=== PATIENT | male | born 1955 | race Two or more races ===

== ENCOUNTER → 2018-06-29 | Outpatient (CLI) | payer OTHER | END | disposition home or self-care (01) | LOC: CFH 15:18 | PROVIDERS: ATTEND Internal Medicine Nephrology | DX: N18.4 Chronic kidney disease, stage 4 (severe) (principal) | CPT/HCPCS: 76770 ==

== ENCOUNTER → 2018-07-06 | Outpatient (CLI) | payer OTHER ==
[2018-07-06 08:48] LABS: BASOPHILS # (AUTO) 0.03 x10^3/uL (0-0.1); BASOPHILS % (AUTO) 0 % (0-1); EOSINOPHILS # (AUTO) 0.05 x10^3/uL (0-0.4); EOSINOPHILS % (AUTO) 0 % (1-7); LYMPHOCYTES # (AUTO) 1.38 x10^3/uL (1-3.4); LYMPHOCYTES % (AUTO) 13 % (22-44); MD NO; MEAN CORPUSCULAR HEMOGLOBIN 30.5 pg (27.5-34.5); MEAN CORPUSCULAR HGB CONC 32.9 g/dL (33.2-36.2); MEAN CORPUSCULAR VOLUME 92.9 fL (81-97); MEAN PLATELET VOLUME 6.1 fL (7.4-10.4); MONOCYTES # (AUTO) 0.88 x10^3/uL (0.2-0.8); MONOCYTES % (AUTO) 8 % (2-9); NEUTROPHILS # (AUTO) 8.53 x10^3/uL (1.8-6.8); NEUTROPHILS % (AUTO) 79 % (42-75); PLATELET COUNT 369 x10^3/uL (130-400); RED BLOOD COUNT 4.35 x10^6/uL (4.38-5.82); RED CELL DISTRIBUTION WIDTH 13.4 % (9.4-14.8)
[2018-07-07 19:18] LABS: ANA SCREEN NEGATIVE (Negative)
== END | disposition home or self-care (01) ==
LOC: LAB 08:36
PROVIDERS: ATTEND Physician Assistant Medical
DX: M25.532 Pain in left wrist (principal)
CPT/HCPCS: 36415; 84550; 85025; 86038

== ENCOUNTER → 2018-07-07 | Outpatient (CLI) | payer OTHER ==
[2018-07-07 08:24] LABS: BASOPHILS # (AUTO) 0.01 x10^3/uL (0-0.1); BASOPHILS % (AUTO) 0 % (0-1); EOSINOPHILS # (AUTO) 0.01 x10^3/uL (0-0.4); EOSINOPHILS % (AUTO) 0 % (1-7); LYMPHOCYTES # (AUTO) 1.41 x10^3/uL (1-3.4); LYMPHOCYTES % (AUTO) 13 % (22-44); MD NO; MEAN CORPUSCULAR HEMOGLOBIN 30.4 pg (27.5-34.5); MEAN CORPUSCULAR HGB CONC 32.5 g/dL (33.2-36.2); MEAN CORPUSCULAR VOLUME 93.7 fL (81-97); MEAN PLATELET VOLUME 6.2 fL (7.4-10.4); MONOCYTES # (AUTO) 0.79 x10^3/uL (0.2-0.8); MONOCYTES % (AUTO) 7 % (2-9); NEUTROPHILS # (AUTO) 8.45 x10^3/uL (1.8-6.8); NEUTROPHILS % (AUTO) 79 % (42-75); PLATELET COUNT 378 x10^3/uL (130-400); RED BLOOD COUNT 4.18 x10^6/uL (4.38-5.82); RED CELL DISTRIBUTION WIDTH 13.1 % (9.4-14.8)
[2018-07-07 08:30] LABS: MICROSCOPIC INDICATED
[2018-07-07 08:33] LABS: ALANINE AMINOTRANSFERASE 49 U/L (12-78); ALBUMIN 3.6 g/dL (3.4-5.0); ANION GAP 6 mmol/L (5-15); CALCIUM 9.8 mg/dL (8.5-10.1); CHLORIDE 112 mmol/L (98-107)
[2018-07-07 08:35] LABS: ALKALINE PHOSPHATASE 80 U/L (45-117); BILIRUBIN,TOTAL 0.5 mg/dL (0.2-1.0); TOTAL PROTEIN 7.8 g/dL (6.4-8.2)
== END | disposition home or self-care (01) ==
LOC: LAB 08:10
PROVIDERS: ATTEND Internal Medicine Nephrology
DX: E55.9 Vitamin D deficiency, unspecified (principal); N18.4 Chronic kidney disease, stage 4 (severe)
CPT/HCPCS: 36415; 80053; 81001; 82306; 82570; 84156; 85025

== ENCOUNTER 2019-01-17 08:24 | Outpatient (CLI) | payer OTHER ==
[2019-01-17 09:00] LABS: BASOPHILS # (AUTO) 0.03 x10^3/uL (0-0.1); BASOPHILS % (AUTO) 1 % (0-1); EOSINOPHILS # (AUTO) 0.18 x10^3/uL (0-0.4); EOSINOPHILS % (AUTO) 3 % (1-7); LYMPHOCYTES # (AUTO) 1.52 x10^3/uL (1-3.4); LYMPHOCYTES % (AUTO) 26 % (22-44); MD NO; MEAN CORPUSCULAR HGB CONC 33.7 g/dL (33.2-36.2); MEAN PLATELET VOLUME 6.4 fL (7.4-10.4); MONOCYTES % (AUTO) 9 % (2-9); NEUTROPHILS # (AUTO) 3.55 x10^3/uL (1.8-6.8); NEUTROPHILS % (AUTO) 62 % (42-75); PLATELET COUNT 332 x10^3/uL (130-400); RED BLOOD COUNT 4.35 x10^6/uL (4.38-5.82); RED CELL DISTRIBUTION WIDTH 12.9 % (9.4-14.8)
[2019-01-17 09:04] LABS: MICROSCOPIC AUTO
[2019-01-17 09:08] LABS: ALANINE AMINOTRANSFERASE 47 U/L (12-78); ALBUMIN 3.9 g/dL (3.4-5.0); ANION GAP 8 mmol/L (5-15); CALCIUM 9.3 mg/dL (8.5-10.1); CHLORIDE 111 mmol/L (98-107); CREATININE 2.13 mg/dL (0.7-1.3)
[2019-01-17 09:10] LABS: ALKALINE PHOSPHATASE 93 U/L (45-117); BILIRUBIN,TOTAL 0.6 mg/dL (0.2-1.0); TOTAL PROTEIN 7.1 g/dL (6.4-8.2)
== END 2019-01-17 23:59 | disposition home or self-care (01) ==
LOC: LAB 08:24
PROVIDERS: ATTEND Internal Medicine Nephrology
DX: E11.22 Type 2 diabetes mellitus with diabetic chronic kidney disease (principal); I12.9 Hypertensive chronic kidney disease with stage 1 through stage 4 chronic kidney disease, or unspecified chronic kidney disease; N18.4 Chronic kidney disease, stage 4 (severe); M10.9 Gout, unspecified
CPT/HCPCS: 36415; 80053; 81001; 82570; 84156; 84550; 85025

== ENCOUNTER → 2019-01-24 | Outpatient (CLI) | payer OTHER | END | disposition home or self-care (01) | LOC: LAB 07:58 | PROVIDERS: ATTEND Family Medicine | DX: E11.9 Type 2 diabetes mellitus without complications (principal) | CPT/HCPCS: 36415; 83036 ==

== ENCOUNTER → 2019-08-03 | Outpatient (CLI) | payer OTHER ==
[2019-08-03 08:49] LABS: BASOPHILS # (AUTO) 0.03 x10^3/uL (0-0.1); BASOPHILS % (AUTO) 1 % (0-1); EOSINOPHILS # (AUTO) 0.23 x10^3/uL (0-0.4); EOSINOPHILS % (AUTO) 5 % (1-7); LYMPHOCYTES # (AUTO) 1.19 x10^3/uL (1-3.4); LYMPHOCYTES % (AUTO) 24 % (22-44); MD NO; MEAN CORPUSCULAR HEMOGLOBIN 30.5 pg (27.5-34.5); MEAN CORPUSCULAR HGB CONC 33.8 g/dL (33.2-36.2); MEAN CORPUSCULAR VOLUME 90.2 fL (81-97); MEAN PLATELET VOLUME 6.7 fL (7.4-10.4); MONOCYTES # (AUTO) 0.29 x10^3/uL (0.2-0.8); MONOCYTES % (AUTO) 6 % (2-9); NEUTROPHILS # (AUTO) 3.24 x10^3/uL (1.8-6.8); NEUTROPHILS % (AUTO) 65 % (42-75); PLATELET COUNT 309 x10^3/uL (130-400); RED BLOOD COUNT 4.53 x10^6/uL (4.38-5.82); RED CELL DISTRIBUTION WIDTH 12.8 % (9.4-14.8)
[2019-08-03 08:57] LABS: MICROSCOPIC AUTO
[2019-08-03 08:59] LABS: ALANINE AMINOTRANSFERASE 29 U/L (12-78); ALBUMIN 3.5 g/dL (3.4-5.0); ANION GAP 8 mmol/L (5-15); CALCIUM 8.6 mg/dL (8.5-10.1); CHLORIDE 111 mmol/L (98-107); CREATININE 1.94 mg/dL (0.7-1.3)
[2019-08-03 09:01] LABS: ALKALINE PHOSPHATASE 96 U/L (45-117); BILIRUBIN,TOTAL 0.7 mg/dL (0.2-1.0); TOTAL PROTEIN 6.9 g/dL (6.4-8.2)
== END | disposition home or self-care (01) ==
LOC: LAB 08:15
PROVIDERS: ATTEND Internal Medicine Nephrology
DX: I12.9 Hypertensive chronic kidney disease with stage 1 through stage 4 chronic kidney disease, or unspecified chronic kidney disease (principal); N18.3 Chronic kidney disease, stage 3 (moderate); E11.22 Type 2 diabetes mellitus with diabetic chronic kidney disease; M10.9 Gout, unspecified; R80.9 Proteinuria, unspecified
CPT/HCPCS: 36415; 80053; 81001; 82043; 82570; 84156; 84550; 85025

== ENCOUNTER → 2019-11-01 | Outpatient (CLI) | payer OTHER ==
[2019-11-01 07:57] LABS: BASOPHILS # (AUTO) 0.04 x10^3/uL (0-0.1); BASOPHILS % (AUTO) 1 % (0-1); EOSINOPHILS # (AUTO) 0.27 x10^3/uL (0-0.4); EOSINOPHILS % (AUTO) 4 % (1-7); LYMPHOCYTES % (AUTO) 26 % (22-44); MD NO; MEAN CORPUSCULAR HEMOGLOBIN 30.2 pg (27.5-34.5); MEAN CORPUSCULAR HGB CONC 33.4 g/dL (33.2-36.2); MEAN CORPUSCULAR VOLUME 90.4 fL (81-97); MEAN PLATELET VOLUME 6.5 fL (7.4-10.4); MONOCYTES # (AUTO) 0.46 x10^3/uL (0.2-0.8); MONOCYTES % (AUTO) 7 % (2-9); NEUTROPHILS # (AUTO) 4.24 x10^3/uL (1.8-6.8); NEUTROPHILS % (AUTO) 62 % (42-75); PLATELET COUNT 395 x10^3/uL (130-400); RED BLOOD COUNT 4.67 x10^6/uL (4.38-5.82); RED CELL DISTRIBUTION WIDTH 12.8 % (9.4-14.8)
[2019-11-01 07:58] LABS: MICROSCOPIC AUTO
[2019-11-01 08:07] LABS: ALANINE AMINOTRANSFERASE 34 U/L (12-78); ALBUMIN 3.9 g/dL (3.4-5.0); ANION GAP 9 mmol/L (5-15); CALCIUM 9.3 mg/dL (8.5-10.1); CHLORIDE 110 mmol/L (98-107); CREATININE 2.01 mg/dL (0.7-1.3)
[2019-11-01 08:18] LABS: ALKALINE PHOSPHATASE 115 U/L (45-117); BILIRUBIN,TOTAL 0.7 mg/dL (0.2-1.0); CHOL/HDL RATIO 2.9; CHOLESTEROL, TOTAL 157 mg/dL (140-239); HDL CHOL % 34 % (26-37); HDL CHOLESTEROL (DIRECT) 54 mg/dL (40-60); LDL CHOLESTEROL,CALCULATED 61 mg/dL (54-169); LDL/HDL RATIO 1.1 (0.5-3.0); PSA SCREEN 1.83 ng/mL (0.00-4.00); TOTAL PROTEIN 7.6 g/dL (6.4-8.2); TRIGLYCERIDES 211 mg/dL (50-200); VLDL CHOLESTEROL 42 mg/dL (0-25)
== END | disposition home or self-care (01) ==
LOC: LAB 07:38
PROVIDERS: ATTEND Family Medicine
DX: Z12.5 Encounter for screening for malignant neoplasm of prostate (principal); Z00.00 Encounter for general adult medical examination without abnormal findings; R79.9 Abnormal finding of blood chemistry, unspecified; E11.9 Type 2 diabetes mellitus without complications; E78.5 Hyperlipidemia, unspecified; E03.9 Hypothyroidism, unspecified; N39.0 Urinary tract infection, site not specified
CPT/HCPCS: 36415; 80053; 80061; 83036; 84402; 84403; 84443; 85025; G0103

== ENCOUNTER 2019-12-15 14:21 | Inpatient (IN) | payer OTHER ==
[~2019-12-15] VITALS: Ht 162.6 cm; Wt 77.4 kg
--- NOTE | 2019-12-15 14:37 | NUR ---
PT RA 72%, PT REQUIRING 6L NC TO MAINTAIN SATS 88-90%, PT TO RM FOR POSSIBLE OXYMASK, TECH TO DO EKG IN RM
[2019-12-15] MEDS ORDERED: ALLO100T30 PO (15:04)
[2019-12-15] MEDS ORDERED: LOSA100T14 PO (15:04)
[2019-12-15] MEDS ORDERED: AMLO-150 PO (15:04)
[2019-12-15] MEDS ORDERED: TERA2CAP3 PO (15:04)
[2019-12-15] MEDS ORDERED: LEVO75TA5 PO (15:04)
[2019-12-15] MEDS ORDERED: GLIP5TAB10 PO (15:04)
[2019-12-15] MEDS ORDERED: LOVA10TA PO (15:04)
[2019-12-15] MEDS ORDERED: DEXAMETHASONE 4 MG/ML, 1ML IVPush ONE (15:30)
[2019-12-15] MEDS ORDERED: DEXAMETHASONE 4 MG/ML, 1ML ONE ×3 (15:40→15:50)
[2019-12-15] MEDS ORDERED: ALBUTEROL/IPRATROPIUM 2.5MG/0.5MG, 3 ML ONE ×2 (15:40→17:19)
[2019-12-15] MEDS ORDERED: CEFTRIAXONE PMX 1GM/50ML 50 ML ONE (15:40)
[2019-12-15 15:50] LABS: BASOPHILS % (AUTO) 0 % (0-1); EOSINOPHILS % (AUTO) 0 % (1-7); INTERNATIONAL NORMALIZED RATIO 0.9 (0.93-1.1); LYMPHOCYTES % (AUTO) 10 % (22-44); MEAN CORPUSCULAR HEMOGLOBIN 29.6 pg (27.5-34.5); MEAN CORPUSCULAR HGB CONC 33.6 g/dL (33.2-36.2); MEAN PLATELET VOLUME 7.1 fL (7.4-10.4); MONOCYTES % (AUTO) 7 % (2-9); NEUTROPHILS % (AUTO) 83 % (42-75); PLATELET COUNT 177 x10^3/uL (130-400); PROTHROMBIN TIME 9.5 Seconds (9.6-11.5); RED BLOOD COUNT 4.43 x10^6/uL (4.38-5.82)
[2019-12-15 15:52] LABS: ALBUMIN 3.3 g/dL (3.4-5.0); ANION GAP 8 mmol/L (5-15); CALCIUM 8.6 mg/dL (8.5-10.1); CHLORIDE 105 mmol/L (98-107)
[2019-12-15] MEDS: ALBUTEROL/IPRATROPIUM 2.5MG/0.5MG, 3 ML NPPB SCH ×2 (15:52→17:24)
[2019-12-15 15:56] LABS: CREATININE 2.64 mg/dL (0.7-1.3); TROPONIN I < 0.015 ng/mL (0.000-0.045)
[2019-12-15 15:58] LABS: MD NO
--- NOTE | 2019-12-15 15:59 | NUR ---
Pt given steroid, ATB, and breathing tx. MD at bedside. Pt on 12L oximask prior to treatment. MD aware.
[2019-12-15] MEDS ORDERED: CEFTRIAXONE PMX 1GM/50ML 50 ML IVPB ONE (16:00)
[2019-12-15] MEDS ORDERED: SODIUM CHLORIDE FLUSH 10ML SYR IVF ONE (16:00)
[2019-12-15] MEDS ORDERED: REMDESIVIR 100 MG in SODIUM CHLORIDE 0.9% 250 ML IVPB ONE (16:30)
[2019-12-15] MEDS ORDERED: ONDANSETRON 2MG/ML, 2ML IVPush PRN (16:30)
[2019-12-15] MEDS: ENOXAPARIN 60 MG/0.6 ML SQ SCH (16:30)
[2019-12-15] MEDS ORDERED: BISACODYL 10 MG SUPP PR PRN (16:30)
[2019-12-15] MEDS: INSULIN LISPRO 100 UNITS/ML, PEN SQ-INSULIN SCH ×2 (16:30→22:03)
[2019-12-15] MEDS ORDERED: OXYcodone IR 5MG TABLET PO PRN (16:30)
[2019-12-15] MEDS ORDERED: POLYETHYLENE GLYCOL 17 GM PACKET PO PRN (16:30)
[2019-12-15] MEDS: AZITHROMYCIN 500 MG in SODIUM CHLORIDE 0.9% 250 ML IV SCH (16:41)
[2019-12-15] MEDS ORDERED: AZITHROMYCIN 500 MG in SODIUM CHLORIDE 0.9% 250 ML IVPB ONE (17:00)
[2019-12-15 17:29] LABS: C-REACTIVE PROTEIN, QUANT 9.87 mg/dL (0.02-0.49)
--- NOTE | 2019-12-15 18:52 | NUR ---
Kennedi [phone]
--- NOTE | 2019-12-15 19:03 | NUR ---
Please call Kennedi () with updates. Number in previous note.
--- NOTE | 2019-12-15 19:24 | NUR ---
Report received from HUEY Kamara. This RN to assume care. Awaiting bed placement. Patient states he is still having diff breathing. Patient is speaking in full word sentences and not using accessory muscles to breathe, however SPO2 remains in the low 90s.
--- NOTE | 2019-12-15 20:00 | NUR ---
Patient states his breathing is feeling better. Remains on 8L NC to maintain sats.
[2019-12-15 21:15] VITALS: BP 142/84
[2019-12-15] MEDS: LOVASTATIN 10 MG TABLET PO SCH (22:00)
[2019-12-15] MEDS: TERAZOSIN 2MG CAPSULE PO SCH (22:00)
[2019-12-15] MEDS: ASCORBIC ACID 500 MG TABLET PO SCH (22:00)
[2019-12-15] MEDS: THIAMINE 100MG TABLET PO SCH (22:01)
[2019-12-15] MEDS: CEFTRIAXONE PMX 1GM/50ML 50 ML IV SCH (22:03)
[2019-12-15 23:14] VITALS: BP 142/84
[2019-12-16 04:00] VITALS: BP 120/69
[2019-12-16 04:28] LABS: BASOPHILS % (AUTO) 0 % (0-1); EOSINOPHILS % (AUTO) 0 % (1-7); LYMPHOCYTES % (AUTO) 11 % (22-44); MEAN CORPUSCULAR HEMOGLOBIN 29.9 pg (27.5-34.5); MEAN CORPUSCULAR HGB CONC 33.8 g/dL (33.2-36.2); MEAN PLATELET VOLUME 6.8 fL (7.4-10.4); MONOCYTES % (AUTO) 7 % (2-9); NEUTROPHILS % (AUTO) 81 % (42-75); PLATELET COUNT 192 x10^3/uL (130-400); RED BLOOD COUNT 4.07 x10^6/uL (4.38-5.82); RED CELL DISTRIBUTION WIDTH 12.9 % (9.4-14.8)
[2019-12-16 04:40] LABS: ALANINE AMINOTRANSFERASE 60 U/L (12-78); ALBUMIN 2.8 g/dL (3.4-5.0); ANION GAP 9 mmol/L (5-15); CALCIUM 8.3 mg/dL (8.5-10.1); CHLORIDE 110 mmol/L (98-107)
[2019-12-16 04:43] LABS: ALKALINE PHOSPHATASE 95 U/L (45-117); BILIRUBIN,TOTAL 0.3 mg/dL (0.2-1.0); CREATININE 2.08 mg/dL (0.7-1.3); TOTAL PROTEIN 7.1 g/dL (6.4-8.2)
[2019-12-16 04:56] LABS: MD NO
[2019-12-16] MEDS: LEVOTHYROXINE 75 MCG TABLET PO SCH (06:16)
[2019-12-16] MEDS: ASCORBIC ACID 500 MG TABLET PO SCH ×2 (08:00→16:35)
[2019-12-16] MEDS: CHOLECALCIFEROL 5,000u TAB PO SCH (09:00)
[2019-12-16] MEDS: SENNA/DOCUSATE TABLET PO SCH (09:00)
[2019-12-16] MEDS: DEXAMETHASONE 4 MG/ML, 1ML IVPush SCH (09:13)
[2019-12-16] MEDS: ZINC SULFATE 220 MG CAPSULE PO SCH (09:13)
[2019-12-16] MEDS: ALLOPURINOL 100 MG TABLET PO SCH (09:13)
[2019-12-16] MEDS: AMLODIPINE 5 MG TABLET PO SCH (09:13)
[2019-12-16] MEDS: LOSARTAN 100 MG TAB PO SCH (09:13)
[2019-12-16] MEDS: INSULIN LISPRO 100 UNITS/ML, PEN SQ-INSULIN SCH ×4 (09:13→21:44)
[2019-12-16] MEDS: THIAMINE 100MG TABLET PO SCH ×2 (09:14→21:43)
[2019-12-16] MEDS: REMDESIVIR 50 MG in SODIUM CHLORIDE 0.9% 250 ML IVPB SCH (16:34)
[2019-12-16] MEDS: ENOXAPARIN 60 MG/0.6 ML SQ SCH (16:35)
[2019-12-16] MEDS: ACETAMINOPHEN 325 MG TABLET PO PRN (16:35)
[2019-12-16] MEDS: AZITHROMYCIN 500 MG in SODIUM CHLORIDE 0.9% 250 ML IV SCH (18:46)
[2019-12-16] MEDS: TERAZOSIN 2MG CAPSULE PO SCH (21:43)
[2019-12-16] MEDS: LOVASTATIN 10 MG TABLET PO SCH (21:43)
[2019-12-16] MEDS: MELATONIN 5 MG TABLET PO PRN (21:43)
[2019-12-16] MEDS: CEFTRIAXONE PMX 1GM/50ML 50 ML IV SCH (21:45)
[2019-12-17 04:00] VITALS: BP 118/82
[2019-12-17 05:21] LABS: BASOPHILS % (AUTO) 0 % (0-1); EOSINOPHILS % (AUTO) 0 % (1-7); LYMPHOCYTES % (AUTO) 11 % (22-44); MEAN CORPUSCULAR HEMOGLOBIN 29.7 pg (27.5-34.5); MEAN CORPUSCULAR HGB CONC 33.9 g/dL (33.2-36.2); MEAN PLATELET VOLUME 7.2 fL (7.4-10.4); MONOCYTES % (AUTO) 11 % (2-9); NEUTROPHILS % (AUTO) 78 % (42-75); PLATELET COUNT 241 x10^3/uL (130-400); RED BLOOD COUNT 4.38 x10^6/uL (4.38-5.82); RED CELL DISTRIBUTION WIDTH 13.1 % (9.4-14.8)
[2019-12-17 05:27] LABS: ALANINE AMINOTRANSFERASE 81 U/L (12-78); ALBUMIN 2.8 g/dL (3.4-5.0); ANION GAP 6 mmol/L (5-15); CALCIUM 8.7 mg/dL (8.5-10.1); CHLORIDE 112 mmol/L (98-107)
[2019-12-17 05:30] LABS: ALKALINE PHOSPHATASE 104 U/L (45-117); BILIRUBIN,TOTAL 0.3 mg/dL (0.2-1.0); CREATININE 1.86 mg/dL (0.7-1.3); MD NO; TOTAL PROTEIN 7.1 g/dL (6.4-8.2)
[2019-12-17] MEDS: LEVOTHYROXINE 75 MCG TABLET PO SCH (06:49)
[2019-12-17] MEDS: THIAMINE 100MG TABLET PO SCH ×2 (08:18→22:01)
[2019-12-17] MEDS: SENNA/DOCUSATE TABLET PO SCH (08:18)
[2019-12-17] MEDS: ZINC SULFATE 220 MG CAPSULE PO SCH (08:18)
[2019-12-17] MEDS: AMLODIPINE 5 MG TABLET PO SCH (08:18)
[2019-12-17] MEDS: LOSARTAN 100 MG TAB PO SCH (08:18)
[2019-12-17] MEDS: ASCORBIC ACID 500 MG TABLET PO SCH ×2 (08:18→16:27)
[2019-12-17] MEDS: INSULIN LISPRO 100 UNITS/ML, PEN SQ-INSULIN SCH ×4 (08:18→22:02)
[2019-12-17] MEDS: ALLOPURINOL 100 MG TABLET PO SCH (08:18)
[2019-12-17] MEDS: CHOLECALCIFEROL 5,000u TAB PO SCH (08:18)
[2019-12-17] MEDS: DEXAMETHASONE 4 MG/ML, 1ML IVPush SCH (08:19)
[2019-12-17] MEDS: ENOXAPARIN 60 MG/0.6 ML SQ SCH (16:27)
[2019-12-17] MEDS: REMDESIVIR 50 MG in SODIUM CHLORIDE 0.9% 250 ML IVPB SCH (16:27)
[2019-12-17] MEDS: AZITHROMYCIN 500 MG in SODIUM CHLORIDE 0.9% 250 ML IV SCH (18:32)
[2019-12-17] MEDS ORDERED: INSULIN GLARGINE 100 UNITS/ML, PEN SQ-INSULIN SCH (21:00)
[2019-12-17] MEDS: CEFTRIAXONE PMX 1GM/50ML 50 ML IV SCH (22:00)
[2019-12-17] MEDS: TERAZOSIN 2MG CAPSULE PO SCH (22:01)
[2019-12-17] MEDS: LOVASTATIN 10 MG TABLET PO SCH (22:01)
[2019-12-18] MEDS: MELATONIN 5 MG TABLET PO PRN (01:17)
[2019-12-18 04:00] VITALS: BP 116/78
[2019-12-18 04:55] LABS: ALBUMIN 2.7 g/dL (3.4-5.0); ANION GAP 8 mmol/L (5-15); CALCIUM 8.6 mg/dL (8.5-10.1); CHLORIDE 111 mmol/L (98-107)
[2019-12-18 04:58] LABS: ALANINE AMINOTRANSFERASE 62 U/L (12-78); ALKALINE PHOSPHATASE 96 U/L (45-117); BILIRUBIN,TOTAL 0.3 mg/dL (0.2-1.0); CREATININE 1.68 mg/dL (0.7-1.3); TOTAL PROTEIN 6.3 g/dL (6.4-8.2)
[2019-12-18] MEDS: LEVOTHYROXINE 75 MCG TABLET PO SCH (06:42)
[2019-12-18] MEDS: DEXAMETHASONE 4 MG/ML, 1ML IVPush SCH (09:21)
[2019-12-18] MEDS: ASCORBIC ACID 500 MG TABLET PO SCH ×2 (09:22→16:07)
[2019-12-18] MEDS: THIAMINE 100MG TABLET PO SCH ×2 (09:22→21:49)
[2019-12-18] MEDS: SENNA/DOCUSATE TABLET PO SCH (09:22)
[2019-12-18] MEDS: ALLOPURINOL 100 MG TABLET PO SCH (09:22)
[2019-12-18] MEDS: AMLODIPINE 5 MG TABLET PO SCH (09:22)
[2019-12-18] MEDS: SODIUM BICARBONATE 650 MG TABLET PO SCH ×2 (09:22→21:48)
[2019-12-18] MEDS: ZINC SULFATE 220 MG CAPSULE PO SCH (09:23)
[2019-12-18] MEDS: CHOLECALCIFEROL 5,000u TAB PO SCH (09:23)
[2019-12-18] MEDS: LOSARTAN 100 MG TAB PO SCH (09:24)
[2019-12-18] MEDS: INSULIN LISPRO 100 UNITS/ML, PEN SQ-INSULIN SCH ×4 (09:25→21:59)
[2019-12-18 14:48] VITALS: BP 132/86
[2019-12-18] MEDS: ENOXAPARIN 60 MG/0.6 ML SQ SCH (16:06)
[2019-12-18] MEDS: REMDESIVIR 50 MG in SODIUM CHLORIDE 0.9% 250 ML IVPB SCH (16:06)
[2019-12-18] MEDS: AZITHROMYCIN 500 MG in SODIUM CHLORIDE 0.9% 250 ML IV SCH (18:24)
[2019-12-18] MEDS: LOVASTATIN 10 MG TABLET PO SCH (21:49)
[2019-12-18] MEDS: TERAZOSIN 2MG CAPSULE PO SCH (21:50)
[2019-12-18] MEDS: CEFTRIAXONE PMX 1GM/50ML 50 ML IV SCH (21:50)
[2019-12-18] MEDS: INSULIN GLARGINE 100 UNITS/ML, PEN SQ-INSULIN SCH (21:58)
[2019-12-19 03:30] VITALS: BP 142/83
[2019-12-19 04:46] LABS: ALANINE AMINOTRANSFERASE 57 U/L (12-78); ALBUMIN 2.8 g/dL (3.4-5.0); ANION GAP 8 mmol/L (5-15); CALCIUM 8.5 mg/dL (8.5-10.1); CHLORIDE 114 mmol/L (98-107)
[2019-12-19 04:49] LABS: ALKALINE PHOSPHATASE 105 U/L (45-117); BILIRUBIN,TOTAL 0.4 mg/dL (0.2-1.0); CREATININE 1.57 mg/dL (0.7-1.3); TOTAL PROTEIN 6.4 g/dL (6.4-8.2)
[2019-12-19] MEDS: INSULIN LISPRO 100 UNITS/ML, PEN SQ-INSULIN SCH ×4 (04:55→21:17)
[2019-12-19] MEDS: LEVOTHYROXINE 75 MCG TABLET PO SCH (06:35)
[2019-12-19 08:38] VITALS: BP 159/63
[2019-12-19] MEDS: SODIUM BICARBONATE 650 MG TABLET PO SCH ×2 (08:42→21:12)
[2019-12-19] MEDS: DEXAMETHASONE 4 MG/ML, 1ML IVPush SCH (08:42)
[2019-12-19] MEDS: ASCORBIC ACID 500 MG TABLET PO SCH ×2 (08:42→16:03)
[2019-12-19] MEDS: SENNA/DOCUSATE TABLET PO SCH (08:42)
[2019-12-19] MEDS: ALLOPURINOL 100 MG TABLET PO SCH (08:42)
[2019-12-19] MEDS: ZINC SULFATE 220 MG CAPSULE PO SCH (08:42)
[2019-12-19] MEDS: THIAMINE 100MG TABLET PO SCH ×2 (08:42→21:13)
[2019-12-19] MEDS: AMLODIPINE 5 MG TABLET PO SCH (08:43)
[2019-12-19] MEDS: LOSARTAN 100 MG TAB PO SCH (08:43)
[2019-12-19] MEDS: CHOLECALCIFEROL 5,000u TAB PO SCH (08:43)
[2019-12-19 13:06] VITALS: BP 135/80
[2019-12-19] MEDS: REMDESIVIR 50 MG in SODIUM CHLORIDE 0.9% 250 ML IVPB SCH (16:02)
[2019-12-19] MEDS: ENOXAPARIN 60 MG/0.6 ML SQ SCH (16:03)
[2019-12-19] MEDS: AZITHROMYCIN 500 MG in SODIUM CHLORIDE 0.9% 250 ML IV SCH (18:03)
[2019-12-19 19:14] VITALS: BP 148/89
[2019-12-19] MEDS: LOVASTATIN 10 MG TABLET PO SCH (21:12)
[2019-12-19] MEDS: TERAZOSIN 2MG CAPSULE PO SCH (21:13)
[2019-12-19] MEDS: CEFTRIAXONE PMX 1GM/50ML 50 ML IV SCH (21:17)
[2019-12-19] MEDS: INSULIN GLARGINE 100 UNITS/ML, PEN SQ-INSULIN SCH (21:17)
[2019-12-20 00:22] VITALS: BP 147/97
[2019-12-20] MEDS: LEVOTHYROXINE 75 MCG TABLET PO SCH (04:52)
[2019-12-20] MEDS: ZINC SULFATE 220 MG CAPSULE PO SCH (08:06)
[2019-12-20] MEDS: THIAMINE 100MG TABLET PO SCH ×2 (08:07→20:48)
[2019-12-20] MEDS: ALLOPURINOL 100 MG TABLET PO SCH (08:07)
[2019-12-20] MEDS: ASCORBIC ACID 500 MG TABLET PO SCH ×2 (08:07→17:32)
[2019-12-20] MEDS: AMLODIPINE 5 MG TABLET PO SCH (08:07)
[2019-12-20] MEDS: LOSARTAN 100 MG TAB PO SCH (08:07)
[2019-12-20] MEDS: SENNA/DOCUSATE TABLET PO SCH (08:08)
[2019-12-20] MEDS: DEXAMETHASONE 4 MG/ML, 1ML IVPush SCH (08:08)
[2019-12-20] MEDS: CHOLECALCIFEROL 5,000u TAB PO SCH (08:08)
[2019-12-20] MEDS: SODIUM BICARBONATE 650 MG TABLET PO SCH ×2 (08:12→20:48)
[2019-12-20] MEDS: INSULIN LISPRO 100 UNITS/ML, PEN SQ-INSULIN SCH ×4 (08:19→20:57)
[2019-12-20 08:29] LABS: BASOPHILS % (AUTO) 0 % (0-1); EOSINOPHILS % (AUTO) 0 % (1-7); LYMPHOCYTES % (AUTO) 3 % (22-44); MEAN CORPUSCULAR HEMOGLOBIN 29.1 pg (27.5-34.5); MEAN CORPUSCULAR HGB CONC 33.6 g/dL (33.2-36.2); MEAN PLATELET VOLUME 6.8 fL (7.4-10.4); MONOCYTES % (AUTO) 4 % (2-9); NEUTROPHILS % (AUTO) 93 % (42-75); PLATELET COUNT 307 x10^3/uL (130-400); RED BLOOD COUNT 4.17 x10^6/uL (4.38-5.82); RED CELL DISTRIBUTION WIDTH 12.6 % (9.4-14.8)
[2019-12-20 08:42] LABS: ANION GAP 9 mmol/L (5-15); CALCIUM 8.7 mg/dL (8.5-10.1); CHLORIDE 114 mmol/L (98-107)
[2019-12-20 08:49] LABS: CREATININE 1.58 mg/dL (0.7-1.3)
[2019-12-20 09:16] LABS: MD SCAN
[2019-12-20 15:00] VITALS: BP 130/84
[2019-12-20 15:18] VITALS: BP 134/89
[2019-12-20 15:53] VITALS: BP 127/83
[2019-12-20] MEDS: REMDESIVIR 100 MG in SODIUM CHLORIDE 0.9% 250 ML IVPB SCH (16:14)
[2019-12-20] MEDS: ENOXAPARIN 60 MG/0.6 ML SQ SCH (17:32)
[2019-12-20] MEDS: AZITHROMYCIN 500 MG in SODIUM CHLORIDE 0.9% 250 ML IV SCH (18:27)
[2019-12-20] MEDS ORDERED: TERAZOSIN 5MG CAPSULE ONE (20:46)
[2019-12-20] MEDS: LOVASTATIN 10 MG TABLET PO SCH (20:48)
[2019-12-20] MEDS: TERAZOSIN 2MG CAPSULE PO SCH (20:48)
[2019-12-20] MEDS: INSULIN GLARGINE 100 UNITS/ML, PEN SQ-INSULIN SCH (20:58)
[2019-12-20] MEDS: CEFTRIAXONE PMX 1GM/50ML 50 ML IV SCH (22:45)
[2019-12-21] MEDS: ACETAMINOPHEN 325 MG TABLET PO PRN (02:47)
[2019-12-21 04:00] VITALS: BP 129/67
[2019-12-21 04:45] LABS: BASOPHILS % (AUTO) 0 % (0-1); EOSINOPHILS % (AUTO) 0 % (1-7); LYMPHOCYTES % (AUTO) 4 % (22-44); MEAN CORPUSCULAR HEMOGLOBIN 29.7 pg (27.5-34.5); MEAN CORPUSCULAR HGB CONC 33.8 g/dL (33.2-36.2); MEAN PLATELET VOLUME 6.7 fL (7.4-10.4); MONOCYTES % (AUTO) 3 % (2-9); NEUTROPHILS % (AUTO) 93 % (42-75); PLATELET COUNT 304 x10^3/uL (130-400); RED CELL DISTRIBUTION WIDTH 13.1 % (9.4-14.8)
[2019-12-21 04:50] LABS: INTERNATIONAL NORMALIZED RATIO 0.99 (0.93-1.1); MD NO; PROTHROMBIN TIME 10.5 Seconds (9.6-11.5)
[2019-12-21 05:00] LABS: ALANINE AMINOTRANSFERASE 44 U/L (12-78); ALBUMIN 2.4 g/dL (3.4-5.0); ANION GAP 8 mmol/L (5-15); CALCIUM 8.7 mg/dL (8.5-10.1); CHLORIDE 113 mmol/L (98-107); CREATININE 1.48 mg/dL (0.7-1.3)
[2019-12-21 05:02] LABS: ALKALINE PHOSPHATASE 107 U/L (45-117); BILIRUBIN,TOTAL 0.6 mg/dL (0.2-1.0); TOTAL PROTEIN 6.2 g/dL (6.4-8.2)
[2019-12-21] MEDS: LEVOTHYROXINE 75 MCG TABLET PO SCH (05:15)
[2019-12-21] MEDS ORDERED: GLUCAGON 1 MG IM PRN (07:00)
[2019-12-21] MEDS ORDERED: DEXTROSE 4 GM TAB.CHEW PO PRN (07:00)
[2019-12-21] MEDS: INSULIN LISPRO 100 UNITS/ML, PEN SQ-INSULIN SCH ×4 (07:00→19:42)
[2019-12-21] MEDS ORDERED: DEXTROSE 50%, 50ML SYRINGE IVPush PRN (07:00)
[2019-12-21] MEDS: DEXAMETHASONE 4 MG/ML, 1ML IVPush SCH (08:35)
[2019-12-21] MEDS ORDERED: MORPHINE SULFATE 4 MG/ML, 1ML ONE (08:50)
[2019-12-21] MEDS ORDERED: LORazepam 2 MG/ML, 1ML ONE (08:51)
[2019-12-21] MEDS: SENNA/DOCUSATE TABLET PO SCH (09:00)
[2019-12-21] MEDS: SODIUM BICARBONATE 650 MG TABLET PO SCH ×2 (09:00→21:29)
[2019-12-21] MEDS: LOSARTAN 100 MG TAB PO SCH (09:00)
[2019-12-21] MEDS ORDERED: LORazepam 2 MG/ML, 1ML IVPush ONE (09:00)
[2019-12-21] MEDS ORDERED: MORPHINE SULFATE 4 MG/ML, 1ML IVPush PRN (09:00)
[2019-12-21] MEDS: ALLOPURINOL 100 MG TABLET PO SCH (09:00)
[2019-12-21] MEDS: AMLODIPINE 5 MG TABLET PO SCH (09:02)
[2019-12-21] MEDS: ASCORBIC ACID 500 MG TABLET PO SCH ×2 (09:02→17:38)
[2019-12-21] MEDS: CHOLECALCIFEROL 5,000u TAB PO SCH (09:02)
[2019-12-21] MEDS: SODIUM CHLORIDE FLUSH 10ML SYR IVF SCH ×2 (09:02→19:30)
[2019-12-21] MEDS: ZINC SULFATE 220 MG CAPSULE PO SCH (09:02)
[2019-12-21] MEDS: THIAMINE 100MG TABLET PO SCH ×2 (09:06→21:29)
[2019-12-21] MEDS ORDERED: FUROSEMIDE 40 MG/4 ML IV ONE ×2 (09:30→10:30)
[2019-12-21] MEDS ORDERED: LORazepam 2 MG/ML, 1ML IVPush PRN (10:30)
[2019-12-21] MEDS ORDERED: POTASSIUM CHLORIDE 20 MEQ in SODIUM CHLORIDE 0.9% 250 ML IV ONE (10:30)
[2019-12-21] MEDS ORDERED: FENTANYL PF 1,000 MCG in SODIUM CHLORIDE 0.9% 80 ML IV PRN (13:00)
[2019-12-21] MEDS ORDERED: SODIUM CHLORIDE 0.9%, 500ML IVBOLUS ONE (13:30)
[2019-12-21] MEDS ORDERED: PROPOFOL 10 MG/ML, 100ML IV ONE (14:00)
[2019-12-21] MEDS ORDERED: PROPOFOL 10 MG/ML, 20ML ONE (14:00)
[2019-12-21] MEDS ORDERED: ROCURONIUM 10MG/ML,5ML ONE (14:00)
[2019-12-21] MEDS ORDERED: MIDAZOLAM 1 MG/ML, 5ML ONE (14:00)
[2019-12-21] MEDS: ENOXAPARIN 60 MG/0.6 ML SQ SCH (17:38)
[2019-12-21] MEDS: REMDESIVIR 100 MG in SODIUM CHLORIDE 0.9% 250 ML IVPB SCH (18:09)
[2019-12-21] MEDS: NOREPINEPHRINE 8 MG in SODIUM CHLORIDE 0.9% 242 ML IV PRN (18:10)
[2019-12-21] MEDS: PROPOFOL 100 ML IV PRN ×2 (19:28→23:45)
[2019-12-21] MEDS: AZITHROMYCIN 500 MG in SODIUM CHLORIDE 0.9% 250 ML IV SCH (19:30)
[2019-12-21] MEDS: FENTANYL PF 1,000 MCG in SODIUM CHLORIDE 0.9% 80 ML IV PRN (20:49)
[2019-12-21] MEDS ORDERED: INSULIN GLARGINE 100 UNITS/ML, PEN SQ-INSULIN SCH (21:00)
[2019-12-21] MEDS: LOVASTATIN 10 MG TABLET PO SCH (21:28)
[2019-12-21] MEDS: CEFTRIAXONE PMX 1GM/50ML 50 ML IV SCH (21:29)
[2019-12-21] MEDS: TERAZOSIN 2MG CAPSULE PO SCH (21:29)
[2019-12-22] MEDS: PROPOFOL 100 ML IV PRN ×4 (03:31→20:26)
[2019-12-22 04:16] LABS: ALANINE AMINOTRANSFERASE 39 U/L (12-78); ALBUMIN 2.1 g/dL (3.4-5.0); ANION GAP 13 mmol/L (5-15); CALCIUM 8.7 mg/dL (8.5-10.1); CHLORIDE 109 mmol/L (98-107); CREATININE 1.91 mg/dL (0.7-1.3)
[2019-12-22 04:19] LABS: ALKALINE PHOSPHATASE 93 U/L (45-117); BILIRUBIN,TOTAL 0.6 mg/dL (0.2-1.0); TOTAL PROTEIN 6.3 g/dL (6.4-8.2)
[2019-12-22] MEDS: LEVOTHYROXINE 75 MCG TABLET PO SCH (06:02)
[2019-12-22 07:35] LABS: BASOPHILS % (AUTO) 1 % (0-1); EOSINOPHILS % (AUTO) 0 % (1-7); LYMPHOCYTES % (AUTO) 3 % (22-44); MEAN CORPUSCULAR HEMOGLOBIN 29.3 pg (27.5-34.5); MEAN CORPUSCULAR HGB CONC 32.6 g/dL (33.2-36.2); MEAN PLATELET VOLUME 7.7 fL (7.4-10.4); MONOCYTES % (AUTO) 3 % (2-9); NEUTROPHILS % (AUTO) 93 % (42-75); PLATELET COUNT 360 x10^3/uL (130-400); RED BLOOD COUNT 3.81 x10^6/uL (4.38-5.82); RED CELL DISTRIBUTION WIDTH 13.4 % (9.4-14.8)
[2019-12-22 07:38] LABS: MD NO
[2019-12-22] MEDS: FENTANYL PF 1,000 MCG in SODIUM CHLORIDE 0.9% 80 ML IV PRN ×3 (07:40→19:35)
[2019-12-22] MEDS: NOREPINEPHRINE 8 MG in SODIUM CHLORIDE 0.9% 242 ML IV PRN (07:41)
[2019-12-22] MEDS: CHOLECALCIFEROL 5,000u TAB PO SCH (08:23)
[2019-12-22] MEDS: ZINC SULFATE 220 MG CAPSULE PO SCH (08:24)
[2019-12-22] MEDS: SODIUM CHLORIDE FLUSH 10ML SYR IVF SCH ×2 (08:24→19:23)
[2019-12-22] MEDS: ASCORBIC ACID 500 MG TABLET PO SCH ×2 (08:24→16:32)
[2019-12-22] MEDS: SENNA/DOCUSATE TABLET PO SCH (08:24)
[2019-12-22] MEDS: DEXAMETHASONE 4 MG/ML, 1ML IVPush SCH (08:24)
[2019-12-22] MEDS: SODIUM BICARBONATE 650 MG TABLET PO SCH ×2 (08:24→21:38)
[2019-12-22] MEDS: THIAMINE 100MG TABLET PO SCH ×2 (08:25→21:39)
[2019-12-22] MEDS: ACETAMINOPHEN 325 MG TABLET PO PRN ×2 (10:15→21:38)
[2019-12-22] MEDS: ALLOPURINOL 100 MG TABLET PO SCH (10:15)
[2019-12-22] MEDS: INSULIN LISPRO 100 UNITS/ML, PEN SQ-INSULIN SCH ×3 (10:17→22:54)
[2019-12-22] MEDS: OSELTAMIVIR 75 MG CAPSULE PO SCH ×2 (13:41→21:40)
[2019-12-22] MEDS: QUETIAPINE 25MG TABLET PO SCH ×2 (13:42→21:00)
[2019-12-22] MEDS: ENOXAPARIN 60 MG/0.6 ML SQ SCH (16:32)
[2019-12-22] MEDS: REMDESIVIR 100 MG in SODIUM CHLORIDE 0.9% 250 ML IVPB SCH (16:32)
[2019-12-22] MEDS: AZITHROMYCIN 500 MG in SODIUM CHLORIDE 0.9% 250 ML IV SCH (19:23)
[2019-12-22] MEDS ORDERED: QUETIAPINE 100MG TABLET ONE (21:24)
[2019-12-22] MEDS: LOVASTATIN 10 MG TABLET PO SCH (21:38)
[2019-12-22] MEDS: CEFTRIAXONE PMX 1GM/50ML 50 ML IV SCH (21:52)
[2019-12-22] MEDS: INSULIN GLARGINE 100 UNITS/ML, PEN SQ-INSULIN SCH (22:21)
[2019-12-23] MEDS: PROPOFOL 100 ML IV PRN ×4 (01:00→21:29)
[2019-12-23] MEDS: FENTANYL PF 2,500 MCG in SODIUM CHLORIDE 0.9% 200 ML IV PRN (01:01)
[2019-12-23] MEDS: INSULIN LISPRO 100 UNITS/ML, PEN SQ-INSULIN SCH ×4 (03:38→21:24)
[2019-12-23] MEDS: ACETAMINOPHEN 325 MG TABLET PO PRN ×3 (03:39→14:56)
[2019-12-23 04:19] LABS: BASOPHILS % (AUTO) 0 % (0-1); EOSINOPHILS % (AUTO) 2 % (1-7); LYMPHOCYTES % (AUTO) 2 % (22-44); MEAN CORPUSCULAR HEMOGLOBIN 31.3 pg (27.5-34.5); MEAN CORPUSCULAR HGB CONC 34.6 g/dL (33.2-36.2); MEAN PLATELET VOLUME 7.6 fL (7.4-10.4); MONOCYTES % (AUTO) 2 % (2-9); NEUTROPHILS % (AUTO) 95 % (42-75); PLATELET COUNT 331 x10^3/uL (130-400); RED BLOOD COUNT 3.56 x10^6/uL (4.38-5.82); RED CELL DISTRIBUTION WIDTH 13.3 % (9.4-14.8)
[2019-12-23 04:26] LABS: ALBUMIN 1.8 g/dL (3.4-5.0); ANION GAP 6 mmol/L (5-15); CALCIUM 7.8 mg/dL (8.5-10.1); CHLORIDE 111 mmol/L (98-107); CREATININE 1.84 mg/dL (0.7-1.3)
[2019-12-23 04:28] LABS: ALKALINE PHOSPHATASE 95 U/L (45-117); BILIRUBIN,TOTAL 0.7 mg/dL (0.2-1.0)
[2019-12-23 04:34] LABS: ALANINE AMINOTRANSFERASE 40 U/L (12-78)
[2019-12-23] MEDS: LEVOTHYROXINE 75 MCG TABLET PO SCH (06:14)
[2019-12-23 06:28] LABS: MD SCAN
[2019-12-23] MEDS: SODIUM CHLORIDE FLUSH 10ML SYR IVF SCH ×2 (07:59→21:23)
[2019-12-23] MEDS: DEXAMETHASONE 4 MG/ML, 1ML IVPush SCH (07:59)
[2019-12-23] MEDS: PANTOPRAZOLE 40 MG IV IVPush SCH (07:59)
[2019-12-23] MEDS: ASCORBIC ACID 500 MG TABLET PO SCH ×2 (07:59→16:00)
[2019-12-23] MEDS: SENNA/DOCUSATE TABLET PO SCH (07:59)
[2019-12-23] MEDS: QUETIAPINE 25MG TABLET PO SCH ×2 (08:00→21:25)
[2019-12-23] MEDS: OSELTAMIVIR 75 MG CAPSULE PO SCH ×2 (08:00→21:48)
[2019-12-23] MEDS: CHOLECALCIFEROL 5,000u TAB PO SCH (08:00)
[2019-12-23] MEDS: SODIUM BICARBONATE 650 MG TABLET PO SCH ×2 (08:00→21:25)
[2019-12-23] MEDS: THIAMINE 100MG TABLET PO SCH ×2 (08:00→21:29)
[2019-12-23] MEDS: ZINC SULFATE 220 MG CAPSULE PO SCH (08:01)
[2019-12-23] MEDS: ALLOPURINOL 100 MG TABLET PO SCH (08:01)
[2019-12-23] MEDS: INSULIN GLARGINE 100 UNITS/ML, PEN SQ-INSULIN SCH ×2 (08:03→21:23)
[2019-12-23] MEDS: REMDESIVIR 100 MG in SODIUM CHLORIDE 0.9% 250 ML IVPB SCH (14:54)
[2019-12-23] MEDS: ENOXAPARIN 60 MG/0.6 ML SQ SCH (16:00)
[2019-12-23] MEDS: LOVASTATIN 10 MG TABLET PO SCH (21:25)
[2019-12-23] MEDS: CEFTRIAXONE PMX 1GM/50ML 50 ML IV SCH (21:29)
[2019-12-24] MEDS: PROPOFOL 100 ML IV PRN ×3 (02:14→13:48)
[2019-12-24] MEDS: FENTANYL PF 2,500 MCG in SODIUM CHLORIDE 0.9% 200 ML IV PRN ×2 (04:15→17:36)
[2019-12-24] MEDS: ACETAMINOPHEN 325 MG TABLET PO PRN (04:17)
[2019-12-24] MEDS ORDERED: VECURONIUM 10 MG ONE (04:49)
[2019-12-24] MEDS ORDERED: VECURONIUM 10 MG IVPush ONE ×2 (05:00)
[2019-12-24] MEDS: VECURONIUM 50 MG in SODIUM CHLORIDE 0.9% 50 ML IV PRN ×2 (05:01→17:45)
[2019-12-24 05:02] LABS: ALANINE AMINOTRANSFERASE 42 U/L (12-78); ALBUMIN 1.8 g/dL (3.4-5.0); ANION GAP 5 mmol/L (5-15); CALCIUM 8.8 mg/dL (8.5-10.1); CHLORIDE 118 mmol/L (98-107)
[2019-12-24 05:04] LABS: ALKALINE PHOSPHATASE 137 U/L (45-117); BILIRUBIN,TOTAL 0.5 mg/dL (0.2-1.0); CREATININE 2.04 mg/dL (0.7-1.3); TOTAL PROTEIN 6.6 g/dL (6.4-8.2)
[2019-12-24] MEDS: INSULIN LISPRO 100 UNITS/ML, PEN SQ-INSULIN SCH ×4 (05:18→21:01)
[2019-12-24] MEDS: LEVOTHYROXINE 75 MCG TABLET PO SCH (05:18)
[2019-12-24] MEDS: MIDAZOLAM HCL 50 MG in SODIUM CHLORIDE 0.9% 40 ML IV PRN ×2 (08:42→22:52)
[2019-12-24] MEDS: THIAMINE 100MG TABLET PO SCH ×2 (09:00→20:48)
[2019-12-24] MEDS: INSULIN GLARGINE 100 UNITS/ML, PEN SQ-INSULIN SCH (09:00)
[2019-12-24] MEDS: ALLOPURINOL 100 MG TABLET PO SCH (09:35)
[2019-12-24] MEDS: SODIUM BICARBONATE 650 MG TABLET PO SCH ×2 (09:35→20:48)
[2019-12-24] MEDS: OSELTAMIVIR 75 MG CAPSULE PO SCH ×2 (09:36→20:48)
[2019-12-24] MEDS: ZINC SULFATE 220 MG CAPSULE PO SCH (09:36)
[2019-12-24] MEDS: CHOLECALCIFEROL 5,000u TAB PO SCH (09:36)
[2019-12-24] MEDS: SENNA/DOCUSATE TABLET PO SCH (09:36)
[2019-12-24] MEDS: ASCORBIC ACID 500 MG TABLET PO SCH ×3 (09:36→17:36)
[2019-12-24] MEDS: QUETIAPINE 25MG TABLET PO SCH ×2 (09:36→20:47)
[2019-12-24] MEDS: DEXAMETHASONE 4 MG/ML, 1ML IVPush SCH (09:37)
[2019-12-24] MEDS: PANTOPRAZOLE 40 MG IV IVPush SCH (09:37)
[2019-12-24] MEDS: SODIUM CHLORIDE FLUSH 10ML SYR IVF SCH ×3 (09:38→20:56)
[2019-12-24] MEDS ORDERED: PROPOFOL 10 MG/ML, 20ML ONE (10:54)
[2019-12-24] MEDS ORDERED: ROCURONIUM 10MG/ML,5ML ONE (10:54)
[2019-12-24] MEDS: PIPERACILLIN/TAZO/PMX 2.25GM 50 ML IVPB SCH ×2 (12:30→20:56)
[2019-12-24] MEDS: LINEZOLID PMX 600MG/300ML 300 ML IV SCH (13:48)
[2019-12-24] MEDS ORDERED: LIDOCAINE-MPF 1%, 2ML ENDO PRN (14:00)
[2019-12-24] MEDS ORDERED: DEXTROSE 50%, 50ML SYRINGE IVPush PRN (14:00)
[2019-12-24] MEDS ORDERED: DEXTROSE 4 GM TAB.CHEW PO PRN (14:00)
[2019-12-24] MEDS ORDERED: GLUCAGON 1 MG IM PRN (14:00)
[2019-12-24] MEDS ORDERED: PHARMACY MAY ADJ FOR RENAL FX MC SCH (14:00)
[2019-12-24] MEDS: REMDESIVIR 100 MG in SODIUM CHLORIDE 0.9% 250 ML IVPB SCH (17:35)
[2019-12-24] MEDS: ENOXAPARIN 60 MG/0.6 ML SQ SCH (17:36)
[2019-12-24] MEDS: LOVASTATIN 10 MG TABLET PO SCH (20:47)
[2019-12-24] MEDS: NOREPINEPHRINE 8 MG in SODIUM CHLORIDE 0.9% 242 ML IV PRN ×2 (21:07→21:52)
[2019-12-25] MEDS: PROPOFOL 100 ML IV PRN ×5 (00:01→23:43)
[2019-12-25] MEDS: LINEZOLID PMX 600MG/300ML 300 ML IV SCH ×2 (01:36→13:20)
[2019-12-25] MEDS: INSULIN LISPRO 100 UNITS/ML, PEN SQ-INSULIN SCH ×4 (04:17→20:40)
[2019-12-25 04:38] LABS: BASOPHILS % (AUTO) 1 % (0-1); EOSINOPHILS % (AUTO) 0 % (1-7); LYMPHOCYTES % (AUTO) 1 % (22-44); MEAN CORPUSCULAR HEMOGLOBIN 29.4 pg (27.5-34.5); MEAN CORPUSCULAR HGB CONC 32.3 g/dL (33.2-36.2); MEAN PLATELET VOLUME 7.3 fL (7.4-10.4); MONOCYTES % (AUTO) 2 % (2-9); NEUTROPHILS % (AUTO) 95 % (42-75); PLATELET COUNT 338 x10^3/uL (130-400); RED BLOOD COUNT 3.76 x10^6/uL (4.38-5.82); RED CELL DISTRIBUTION WIDTH 13.6 % (9.4-14.8)
[2019-12-25 04:41] LABS: ALANINE AMINOTRANSFERASE 30 U/L (12-78); ALBUMIN 1.5 g/dL (3.4-5.0); ANION GAP 4 mmol/L (5-15); CALCIUM 8.7 mg/dL (8.5-10.1); CHLORIDE 114 mmol/L (98-107)
[2019-12-25 04:43] LABS: MD NO
[2019-12-25 04:44] LABS: ALKALINE PHOSPHATASE 101 U/L (45-117); BILIRUBIN,TOTAL 0.4 mg/dL (0.2-1.0); TOTAL PROTEIN 6.4 g/dL (6.4-8.2)
[2019-12-25] MEDS: PIPERACILLIN/TAZO/PMX 2.25GM 50 ML IVPB SCH ×3 (04:48→20:17)
[2019-12-25] MEDS: LEVOTHYROXINE 75 MCG TABLET PO SCH (04:49)
[2019-12-25] MEDS: FENTANYL PF 2,500 MCG in SODIUM CHLORIDE 0.9% 200 ML IV PRN ×2 (04:56→15:48)
[2019-12-25] MEDS: ARTIFICIAL TEARS OINT 3.5 GM EACHEYE SCH ×5 (04:57→23:43)
[2019-12-25] MEDS: MIDAZOLAM HCL 50 MG in SODIUM CHLORIDE 0.9% 40 ML IV PRN ×2 (07:48→15:49)
[2019-12-25] MEDS: DEXAMETHASONE 4 MG/ML, 1ML IVPush SCH (07:49)
[2019-12-25] MEDS: PANTOPRAZOLE 40 MG IV IVPush SCH (07:49)
[2019-12-25] MEDS: SODIUM CHLORIDE FLUSH 10ML SYR IVF SCH ×4 (07:49→20:16)
[2019-12-25] MEDS: ASCORBIC ACID 500 MG TABLET PO SCH ×2 (08:00→15:50)
[2019-12-25] MEDS: OSELTAMIVIR 75 MG CAPSULE PO SCH (09:00)
[2019-12-25] MEDS: SENNA/DOCUSATE TABLET PO SCH (09:00)
[2019-12-25] MEDS: QUETIAPINE 25MG TABLET PO SCH ×2 (09:00→20:15)
[2019-12-25] MEDS: CHOLECALCIFEROL 5,000u TAB PO SCH (09:00)
[2019-12-25] MEDS: THIAMINE 100MG TABLET PO SCH ×2 (09:14→20:15)
[2019-12-25] MEDS: SODIUM BICARBONATE 650 MG TABLET PO SCH ×2 (09:14→20:15)
[2019-12-25] MEDS: ALLOPURINOL 100 MG TABLET PO SCH (09:14)
[2019-12-25] MEDS: ZINC SULFATE 220 MG CAPSULE PO SCH (09:14)
[2019-12-25] MEDS: VECURONIUM 50 MG in SODIUM CHLORIDE 0.9% 50 ML IV PRN ×2 (13:19→23:58)
[2019-12-25] MEDS: ENOXAPARIN 60 MG/0.6 ML SQ SCH (15:50)
[2019-12-25] MEDS: LOVASTATIN 10 MG TABLET PO SCH (20:15)
[2019-12-25] MEDS: NOREPINEPHRINE 8 MG in SODIUM CHLORIDE 0.9% 242 ML IV PRN (23:58)
[2019-12-26] MEDS: MIDAZOLAM HCL 50 MG in SODIUM CHLORIDE 0.9% 40 ML IV PRN (01:09)
[2019-12-26] MEDS ORDERED: ACETAMINOPHEN 650 MG SUPP ONE (01:12)
[2019-12-26] MEDS ORDERED: ACETAMINOPHEN 650 MG SUPP PR PRN (01:30)
[2019-12-26] MEDS ORDERED: LABETALOL 5MG/ML, 20ML ONE (01:44)
[2019-12-26] MEDS: LINEZOLID PMX 600MG/300ML 300 ML IV SCH ×2 (01:49→14:31)
[2019-12-26] MEDS ORDERED: LABETALOL 5MG/ML, 20ML IVPush PRN (02:00)
[2019-12-26] MEDS: FENTANYL PF 2,500 MCG in SODIUM CHLORIDE 0.9% 200 ML IV PRN (02:13)
[2019-12-26] MEDS: INSULIN LISPRO 100 UNITS/ML, PEN SQ-INSULIN SCH ×4 (03:31→21:07)
[2019-12-26 03:49] LABS: BASOPHILS % (AUTO) 1 % (0-1); EOSINOPHILS % (AUTO) 1 % (1-7); LYMPHOCYTES % (AUTO) 1 % (22-44); MEAN CORPUSCULAR HGB CONC 31.8 g/dL (33.2-36.2); MEAN PLATELET VOLUME 7.4 fL (7.4-10.4); MONOCYTES % (AUTO) 3 % (2-9); NEUTROPHILS % (AUTO) 94 % (42-75); PLATELET COUNT 203 x10^3/uL (130-400); RED BLOOD COUNT 3.79 x10^6/uL (4.38-5.82); RED CELL DISTRIBUTION WIDTH 13.7 % (9.4-14.8)
[2019-12-26 03:52] LABS: MD NO
[2019-12-26 04:01] LABS: ANION GAP 4 mmol/L (5-15); CALCIUM 8.7 mg/dL (8.5-10.1); CHLORIDE 117 mmol/L (98-107)
[2019-12-26] MEDS: ARTIFICIAL TEARS OINT 3.5 GM EACHEYE SCH ×4 (04:18→23:04)
[2019-12-26] MEDS: PIPERACILLIN/TAZO/PMX 2.25GM 50 ML IVPB SCH ×3 (04:18→19:37)
[2019-12-26] MEDS: LEVOTHYROXINE 75 MCG TABLET PO SCH (04:22)
[2019-12-26] MEDS: PROPOFOL 100 ML IV PRN (05:12)
[2019-12-26] MEDS: DEXAMETHASONE 4 MG/ML, 1ML IVPush SCH (07:55)
[2019-12-26] MEDS: PANTOPRAZOLE 40 MG IV IVPush SCH (07:55)
[2019-12-26] MEDS: SODIUM CHLORIDE FLUSH 10ML SYR IVF SCH ×2 (07:56→21:00)
[2019-12-26] MEDS: ASCORBIC ACID 500 MG TABLET PO SCH ×2 (08:00→16:44)
[2019-12-26] MEDS: CHOLECALCIFEROL 5,000u TAB PO SCH (09:00)
[2019-12-26] MEDS: ALLOPURINOL 100 MG TABLET PO SCH (09:00)
[2019-12-26] MEDS: ZINC SULFATE 220 MG CAPSULE PO SCH (09:00)
[2019-12-26] MEDS: SENNA/DOCUSATE TABLET PO SCH (09:00)
[2019-12-26] MEDS: QUETIAPINE 25MG TABLET PO SCH ×2 (09:00→21:00)
[2019-12-26] MEDS: SODIUM BICARBONATE 650 MG TABLET PO SCH ×3 (09:00→21:05)
[2019-12-26] MEDS: THIAMINE 100MG TABLET PO SCH ×3 (09:00→21:06)
[2019-12-26 10:07] LABS: MICROSCOPIC INDICATED
[2019-12-26] MEDS: VECURONIUM 50 MG in SODIUM CHLORIDE 0.9% 50 ML IV PRN (12:06)
[2019-12-26] MEDS: ENOXAPARIN 60 MG/0.6 ML SQ SCH (16:31)
[2019-12-26] MEDS: LOVASTATIN 10 MG TABLET PO SCH (21:05)
[2019-12-27] MEDS: PROPOFOL 100 ML IV PRN ×5 (00:32→22:52)
[2019-12-27] MEDS: FENTANYL PF 2,500 MCG in SODIUM CHLORIDE 0.9% 200 ML IV PRN ×3 (00:33→19:49)
[2019-12-27] MEDS: LINEZOLID PMX 600MG/300ML 300 ML IV SCH ×2 (00:50→14:15)
[2019-12-27] MEDS: INSULIN LISPRO 100 UNITS/ML, PEN SQ-INSULIN SCH ×4 (03:13→21:00)
[2019-12-27] MEDS: PIPERACILLIN/TAZO/PMX 2.25GM 50 ML IVPB SCH ×3 (03:15→20:56)
[2019-12-27] MEDS: VECURONIUM 50 MG in SODIUM CHLORIDE 0.9% 50 ML IV PRN ×2 (03:15→14:16)
[2019-12-27 04:05] LABS: ANION GAP 5 mmol/L (5-15); CALCIUM 8.8 mg/dL (8.5-10.1); CHLORIDE 113 mmol/L (98-107); CREATININE 1.93 mg/dL (0.7-1.3); TRIGLYCERIDES 255 mg/dL (50-200)
[2019-12-27 04:12] LABS: BASOPHILS % (AUTO) 1 % (0-1); EOSINOPHILS % (AUTO) 1 % (1-7); LYMPHOCYTES % (AUTO) 4 % (22-44); MEAN CORPUSCULAR HEMOGLOBIN 29.6 pg (27.5-34.5); MEAN CORPUSCULAR HGB CONC 32.7 g/dL (33.2-36.2); MEAN PLATELET VOLUME 7.9 fL (7.4-10.4); MONOCYTES % (AUTO) 5 % (2-9); NEUTROPHILS % (AUTO) 90 % (42-75); PLATELET COUNT 89 x10^3/uL (130-400); RED BLOOD COUNT 3.86 x10^6/uL (4.38-5.82); RED CELL DISTRIBUTION WIDTH 13.7 % (9.4-14.8)
[2019-12-27] MEDS: ARTIFICIAL TEARS OINT 3.5 GM EACHEYE SCH ×4 (04:14→22:51)
[2019-12-27 04:19] LABS: MD NO
[2019-12-27] MEDS: LEVOTHYROXINE 75 MCG TABLET PO SCH (05:18)
[2019-12-27] MEDS ORDERED: CATHFLO-ALTEPLASE 2 MG/2 ML CATHFLUSH ONE (07:00)
[2019-12-27] MEDS: DEXAMETHASONE 4 MG/ML, 1ML IVPush SCH ×2 (08:00→08:26)
[2019-12-27] MEDS: ASCORBIC ACID 500 MG TABLET PO SCH ×2 (08:00→17:00)
[2019-12-27] MEDS: PANTOPRAZOLE 40 MG IV IVPush SCH (08:26)
[2019-12-27] MEDS: SODIUM CHLORIDE FLUSH 10ML SYR IVF SCH ×2 (08:27→21:00)
[2019-12-27] MEDS: ALLOPURINOL 100 MG TABLET PO SCH (09:00)
[2019-12-27] MEDS: QUETIAPINE 25MG TABLET PO SCH ×2 (09:00→21:00)
[2019-12-27] MEDS: SODIUM BICARBONATE 650 MG TABLET PO SCH ×2 (09:00→21:00)
[2019-12-27] MEDS: ZINC SULFATE 220 MG CAPSULE PO SCH (09:00)
[2019-12-27] MEDS: THIAMINE 100MG TABLET PO SCH ×2 (09:00→21:00)
[2019-12-27] MEDS: SENNA/DOCUSATE TABLET PO SCH (10:38)
[2019-12-27] MEDS: CHOLECALCIFEROL 5,000u TAB PO SCH (10:45)
[2019-12-27] MEDS: MIDAZOLAM HCL 50 MG in SODIUM CHLORIDE 0.9% 40 ML IV PRN (12:12)
[2019-12-27] MEDS: ENOXAPARIN 60 MG/0.6 ML SQ SCH (17:09)
[2019-12-27] MEDS: LOVASTATIN 10 MG TABLET PO SCH (21:00)
[2019-12-28] MEDS: LINEZOLID PMX 600MG/300ML 300 ML IV SCH ×2 (01:44→13:53)
[2019-12-28 02:34] LABS: BASOPHILS % (AUTO) 0 % (0-1); EOSINOPHILS % (AUTO) 1 % (1-7); LYMPHOCYTES % (AUTO) 5 % (22-44); MEAN CORPUSCULAR HEMOGLOBIN 30.8 pg (27.5-34.5); MEAN CORPUSCULAR HGB CONC 33.3 g/dL (33.2-36.2); MEAN PLATELET VOLUME 7.9 fL (7.4-10.4); MONOCYTES % (AUTO) 7 % (2-9); NEUTROPHILS % (AUTO) 88 % (42-75); PLATELET COUNT 90 x10^3/uL (130-400); RED BLOOD COUNT 3.33 x10^6/uL (4.38-5.82); RED CELL DISTRIBUTION WIDTH 13.7 % (9.4-14.8)
[2019-12-28 02:40] LABS: MD NO
[2019-12-28 02:45] LABS: ANION GAP 5 mmol/L (5-15); CALCIUM 7.4 mg/dL (8.5-10.1); CHLORIDE 110 mmol/L (98-107); CREATININE 2.11 mg/dL (0.7-1.3)
[2019-12-28] MEDS: INSULIN LISPRO 100 UNITS/ML, PEN SQ-INSULIN SCH ×4 (03:00→21:42)
[2019-12-28] MEDS: FENTANYL PF 2,500 MCG in SODIUM CHLORIDE 0.9% 200 ML IV PRN ×3 (04:17→22:02)
[2019-12-28] MEDS: PIPERACILLIN/TAZO/PMX 2.25GM 50 ML IVPB SCH ×3 (04:25→19:24)
[2019-12-28] MEDS: VECURONIUM 50 MG in SODIUM CHLORIDE 0.9% 50 ML IV PRN ×2 (04:26→10:19)
[2019-12-28] MEDS: PROPOFOL 100 ML IV PRN ×3 (05:49→21:41)
[2019-12-28] MEDS: ARTIFICIAL TEARS OINT 3.5 GM EACHEYE SCH ×3 (05:49→15:59)
[2019-12-28] MEDS: MIDAZOLAM HCL 50 MG in SODIUM CHLORIDE 0.9% 40 ML IV PRN ×3 (05:50→17:16)
[2019-12-28] MEDS: LEVOTHYROXINE 75 MCG TABLET PO SCH (06:00)
[2019-12-28] MEDS: PANTOPRAZOLE 40 MG IV IVPush SCH (07:58)
[2019-12-28] MEDS: DEXAMETHASONE 4 MG/ML, 1ML IVPush SCH (07:58)
[2019-12-28] MEDS: ASCORBIC ACID 500 MG TABLET PO SCH ×2 (08:00→16:04)
[2019-12-28] MEDS: SENNA/DOCUSATE TABLET PO SCH (09:00)
[2019-12-28] MEDS: ALLOPURINOL 100 MG TABLET PO SCH (09:00)
[2019-12-28] MEDS: QUETIAPINE 25MG TABLET PO SCH ×2 (09:00→21:00)
[2019-12-28] MEDS: THIAMINE 100MG TABLET PO SCH ×2 (09:00→21:00)
[2019-12-28] MEDS: ZINC SULFATE 220 MG CAPSULE PO SCH (09:00)
[2019-12-28] MEDS: SODIUM BICARBONATE 650 MG TABLET PO SCH ×2 (09:00→21:00)
[2019-12-28] MEDS: CHOLECALCIFEROL 5,000u TAB PO SCH (09:55)
[2019-12-28] MEDS: SODIUM CHLORIDE FLUSH 10ML SYR IVF SCH ×2 (09:55→21:00)
[2019-12-28] MEDS: ENOXAPARIN 60 MG/0.6 ML SQ SCH (15:59)
[2019-12-28] MEDS ORDERED: SODIUM CHLORIDE 0.9% 500 ML IV SCH (17:00)
[2019-12-28] MEDS ORDERED: SODIUM CHLORIDE 0.9%, 500ML IVBOLUS ONE (18:00)
[2019-12-28] MEDS ORDERED: ALBUMIN HUMAN 25% 100 ML IV ONE (18:00)
[2019-12-28] MEDS: LOVASTATIN 10 MG TABLET PO SCH (21:00)
[2019-12-29] MEDS: NOREPINEPHRINE 8 MG in SODIUM CHLORIDE 0.9% 242 ML IV PRN ×3 (00:22→17:27)
[2019-12-29] MEDS: ARTIFICIAL TEARS OINT 3.5 GM EACHEYE SCH ×5 (00:24→23:00)
[2019-12-29] MEDS: VECURONIUM 50 MG in SODIUM CHLORIDE 0.9% 50 ML IV PRN ×2 (00:24→10:51)
[2019-12-29] MEDS: MIDAZOLAM HCL 50 MG in SODIUM CHLORIDE 0.9% 40 ML IV PRN ×3 (00:54→17:25)
[2019-12-29] MEDS: LINEZOLID PMX 600MG/300ML 300 ML IV SCH ×2 (00:54→14:40)
[2019-12-29] MEDS: PROPOFOL 100 ML IV PRN ×4 (00:58→17:24)
[2019-12-29] MEDS: PIPERACILLIN/TAZO/PMX 2.25GM 50 ML IVPB SCH ×3 (03:35→19:30)
[2019-12-29 04:14] LABS: BASOPHILS % (AUTO) 1 % (0-1); EOSINOPHILS % (AUTO) 1 % (1-7); LYMPHOCYTES % (AUTO) 7 % (22-44); MEAN CORPUSCULAR HEMOGLOBIN 30.8 pg (27.5-34.5); MEAN CORPUSCULAR HGB CONC 33.5 g/dL (33.2-36.2); MEAN PLATELET VOLUME 7.7 fL (7.4-10.4); MONOCYTES % (AUTO) 10 % (2-9); NEUTROPHILS % (AUTO) 82 % (42-75); PLATELET COUNT 72 x10^3/uL (130-400); RED BLOOD COUNT 2.48 x10^6/uL (4.38-5.82); RED CELL DISTRIBUTION WIDTH 13.6 % (9.4-14.8)
[2019-12-29 04:26] LABS: ANION GAP 7 mmol/L (5-15); CALCIUM 7.4 mg/dL (8.5-10.1); CHLORIDE 111 mmol/L (98-107)
[2019-12-29 04:27] LABS: CREATININE 4.06 mg/dL (0.7-1.3)
[2019-12-29 04:58] LABS: MD SCAN
[2019-12-29] MEDS: INSULIN LISPRO 100 UNITS/ML, PEN SQ-INSULIN SCH ×4 (05:21→21:19)
[2019-12-29] MEDS: LEVOTHYROXINE 75 MCG TABLET PO SCH (05:21)
[2019-12-29] MEDS: FENTANYL PF 2,500 MCG in SODIUM CHLORIDE 0.9% 200 ML IV PRN ×2 (07:13→15:28)
[2019-12-29] MEDS: PANTOPRAZOLE 40 MG IV IVPush SCH (08:16)
[2019-12-29] MEDS: SENNA/DOCUSATE TABLET PO SCH (08:16)
[2019-12-29] MEDS: ASCORBIC ACID 500 MG TABLET PO SCH ×2 (08:16→17:00)
[2019-12-29] MEDS: SODIUM BICARBONATE 650 MG TABLET PO SCH ×2 (08:17→21:00)
[2019-12-29] MEDS: ALLOPURINOL 100 MG TABLET PO SCH (08:17)
[2019-12-29] MEDS: QUETIAPINE 25MG TABLET PO SCH ×2 (08:17→21:00)
[2019-12-29] MEDS: THIAMINE 100MG TABLET PO SCH (08:17)
[2019-12-29] MEDS: CHOLECALCIFEROL 5,000u TAB PO SCH (08:17)
[2019-12-29] MEDS: ZINC SULFATE 220 MG CAPSULE PO SCH (08:17)
[2019-12-29] MEDS: SODIUM CHLORIDE FLUSH 10ML SYR IVF SCH ×2 (08:18→21:00)
[2019-12-29 09:36] LABS: ALBUMIN 1.8 g/dL (3.4-5.0); ANION GAP 8 mmol/L (5-15); CALCIUM 7.7 mg/dL (8.5-10.1); CHLORIDE 110 mmol/L (98-107)
[2019-12-29 09:40] LABS: ALANINE AMINOTRANSFERASE 25 U/L (12-78); ALKALINE PHOSPHATASE 58 U/L (45-117); BILIRUBIN,TOTAL 2.9 mg/dL (0.2-1.0); CREATININE 4.48 mg/dL (0.7-1.3); TOTAL PROTEIN 5.5 g/dL (6.4-8.2)
[2019-12-29] MEDS ORDERED: NOREPINEPHRINE 32 MG in SODIUM CHLORIDE 0.9% 218 ML IV PRN (19:00)
[2019-12-29] MEDS: LOVASTATIN 10 MG TABLET PO SCH (21:00)
[2019-12-29] MEDS ORDERED: THIAMINE 200 MG in SODIUM CHLORIDE 0.9% 50 ML IV SCH (23:30)
[2019-12-30] MEDS: PROPOFOL 100 ML IV PRN (00:02)
[2019-12-30] MEDS: FENTANYL PF 2,500 MCG in SODIUM CHLORIDE 0.9% 200 ML IV PRN (00:13)
== END 2019-12-30 03:48 | disposition expired | DRG 870 ==
LOC: ED 16:26 → EDIP 21:02 → ICU 21:09
PROVIDERS: ADMIT Internal Medicine; ATTEND Internal Medicine
PROC: 30233K1 Transfusion of Nonautologous Frozen Plasma into Peripheral Vein, Percutaneous Approach (ICD-10-PCS; 2019-12-20)
PROC: 5A1955Z Respiratory Ventilation, Greater than 96 Consecutive Hours (ICD-10-PCS; 2019-12-21)
PROC: 02HV33Z Insertion of Infusion Device into Superior Vena Cava, Percutaneous Approach (ICD-10-PCS; 2019-12-21)
PROC: B548ZZA Ultrasonography of Superior Vena Cava, Guidance (ICD-10-PCS; 2019-12-21)
PROC: 0BH17EZ Insertion of Endotracheal Airway into Trachea, Via Natural or Artificial Opening (ICD-10-PCS; 2019-12-21)
PROC: 0W9B30Z Drainage of Left Pleural Cavity with Drainage Device, Percutaneous Approach (ICD-10-PCS; 2019-12-21)
PROC: 0B21XEZ Change Endotracheal Airway in Trachea, External Approach (ICD-10-PCS; 2019-12-24)
PROC: 0T9B30Z Drainage of Bladder with Drainage Device, Percutaneous Approach (ICD-10-PCS; principal; 2019-12-26)
PROC: 02HV33Z Insertion of Infusion Device into Superior Vena Cava, Percutaneous Approach (ICD-10-PCS; 2019-12-29)
DX: A41.89 Other specified sepsis (principal); J10.08 Influenza due to other identified influenza virus with other specified pneumonia; J12.89 Other viral pneumonia; J15.9 Unspecified bacterial pneumonia; J96.01 Acute respiratory failure with hypoxia; N17.0 Acute kidney failure with tubular necrosis; R65.21 Severe sepsis with septic shock; U07.1 COVID-19; D62 Acute posthemorrhagic anemia; E87.1 Hypo-osmolality and hyponatremia; E87.4 Mixed disorder of acid-base balance; J93.83 Other pneumothorax; J98.11 Atelectasis; N18.4 Chronic kidney disease, stage 4 (severe); T79.7XXA Traumatic subcutaneous emphysema, initial encounter; Z99.11 Dependence on respirator [ventilator] status; D72.819 Decreased white blood cell count, unspecified; E03.9 Hypothyroidism, unspecified; E11.22 Type 2 diabetes mellitus with diabetic chronic kidney disease; E11.65 Type 2 diabetes mellitus with hyperglycemia; N28.9 Disorder of kidney and ureter, unspecified; E78.5 Hyperlipidemia, unspecified; E87.5 Hyperkalemia; F41.9 Anxiety disorder, unspecified; I12.9 Hypertensive chronic kidney disease with stage 1 through stage 4 chronic kidney disease, or unspecified chronic kidney disease; I71.2 Thoracic aortic aneurysm, without rupture; M10.9 Gout, unspecified; N40.0 Benign prostatic hyperplasia without lower urinary tract symptoms; Z66 Do not resuscitate; Z82.49 Family history of ischemic heart disease and other diseases of the circulatory system; Z79.899 Other long term (current) drug therapy; Z79.891 Long term (current) use of opiate analgesic; Z79.01 Long term (current) use of anticoagulants
CPT/HCPCS: 36415; 36556; 36573; 36600; 71045; 71250; 74176; 77001; 80048; 80053; 81001; 82040; 82728; 82803; 82962; 83605; 83615; 83735; 83880; 84145; 84478; 84484; 85018; 85025; 85379; 85610; 85730; 86140; 86850; 86900; 87040; 87070; 87081; 87205; 93005; 93308; 94002; 94003; 94640; 94660; 96365; 96367; 96375; 99285; C1894; G0378; J0456; J0696; J1100; J1650; J1940; J2020; J2250; J2543; J2704; J2997; J3010; J3411; J3480; P9047; C1751; C9113; J1642; J1815; J2060; J7040; J7050; P9017